=== PATIENT | male | born 1960 | race Caucasian/White ===

== ENCOUNTER 2016-11-14 12:43 | Day surgery (SDC) | payer OTHER ==
[2016-09-11 14:21] VITALS: BMI 28.0
--- NOTE | 2016-09-11 14:44 | PAT Medication Instructions ---
Service Date Sep 11, 2016. Current Home Medication List Albuterol Sulfate (Proventil Hfa), Unknown Dose INH PO Aluminum Chloride (Aluminum Chloride Hexahyd) Aspirin (Aspirin Ec), 81 MG PO QAM Ibuprofen (Motrin), 800 MG PO Q8H Simvastatin (Zocor), 20 MG PO QPM Tamsulosin HCl (Tamsulosin HCl), 1 TAB PO HS Medication Instructions For Your Scheduled Surgery - Hold the following medications 10 days prior to surgery per surgeon's instructions: Aspirin (Aspirin Ec), 81 MG PO QAM Ibuprofen (Motrin), 800 MG PO Q8H - Hold the following medications the morning of surgery: Aluminum Chloride (Aluminum Chloride Hexahyd) - Take the following medications the morning of surgery: Albuterol Sulfate (Proventil Hfa), Unknown Dose INH PO (use if needed; BRING TO HOSPITAL) - Take the following medications as scheduled the night before surgery: Simvastatin (Zocor), 20 MG PO QPM Tamsulosin HCl (Tamsulosin HCl), 1 TAB PO HS *Nothing to eat or drink after midnight* If you have any questions please call us at [phone] (Ilda Quezada PA-C ) or [phone] or [phone]
[2016-09-11 15:35] LABS: BASO % 0.7 %; BASO ABS # 0.03 K/uL (0-0.2); COMPLETE YES; EOS % 0.9 %; HEMATOCRIT 45.1 % (42-52); IG% 0.2 %; LYMPH % 22.4 %; LYMPH ABS # 1.02 K/uL (1.2-3.4); MEAN CELL VOLUME 90.6 fL (80-100); MEAN CORPUSCULAR HEMOGLOBIN 30.9 pg (25-34); MEAN CORPUSCULAR HGB CONC 34.1 g/dl (32-36); MEAN PLATELET VOLUME 10.2 fL (7.4-10.4); MONO % 7.5 %; NEUT % 68.3 %; PLATELET COUNT 187 K/uL (130-400); RED BLOOD COUNT 4.98 M/uL (4.7-6.1); WHITE BLOOD COUNT 4.55 K/uL (4.8-10.8)
[2016-09-11 15:41] LABS: URINE APPEARANCE CLEAR (CLEAR); URINE BILIRUBIN NEG (NEG); URINE COLOR YELLOW; URINE NITRITE NEG (NEG); URINE PH 6.5 (4.5-7.5); UROBILINOGEN NEG (NEG)
[2016-09-11 15:51] LABS: MANUAL MICROSCOPIC REQUIRED? NO; REVIEW REQ? NO
[2016-09-11 15:53] LABS: BUN/CREATININE RATIO 11.5 (10-20); CALCIUM 9.2 mg/dl (8.5-10.1)
--- NOTE | 2016-09-11 15:57 | DIAGNOSTIC IMAGING REPORT ---
CHEST PREADMISSION(PA/LAT) CLINICAL HISTORY: Preoperative chest COMPARISON STUDY: 01/03/2015 FINDINGS: The cardiac and mediastinal contours are normal. There is no evidence of focal pulmonary consolidation. There is no evidence of failure. No pleural effusions are visualized.[ IMPRESSION: No active disease in the chest. Electronically signed by: Shaheen Contreras M.D. 09/11/2016 3:55 PM Dictated Date/Time: 09/11/2016 3:55 PM
[~2016-11-14] VITALS: Ht 185.4 cm; Wt 98.5 kg
[~2016-11-14 12:43] MED LIST: ALBUAER INH; ASPI81TA28 PO; ATROPINE SULFATE 0.1 MG/ML 5ML SYR IV PRN; CEFAZOLIN 2000 MG/60 ML D5W IV SCH; CIPROFLOXACIN / D5W 400 MG IV SCH; EpHEDrine SULFATE INJ 50 MG/ML AMP IV PRN; FENTANYL CITRATE INJ 50 MCG/1 ML 2 ML VIAL IV PRN; FLM4 PO; HYDROmorphone INJ 1 MG/ML SYR IV PRN; IBUP-1428 PO; LACTATED RINGER'S 1000ML 1,000 ML IV SCH; ONDANSETRON INJ 2 MG/ML 2 ML VIAL IV PRN; SIMV20TA2 PO; [UNRECOGNIZED DRUG - CODE]
[2016-11-14 13:05] VITALS: BP 156/70; PULSE 75; TEMP 36.8; O2SAT 99; Ht 185.4 cm; Wt 98.5 kg
[2016-11-14] MEDS ORDERED: OMEG10007 PO (13:16)
--- NOTE | 2016-11-14 13:31 | History & Physical Bridge Note ---
H&P Re-Evaluation Bridge Note: I have examined the patient, reviewed the History & Physical and in the interval since the performance of the History & Physical I have noted the following changes of clinical significance: No changes noted
[2016-11-14] MEDS ORDERED: LIDOCAINE HCL 2% 2 ML VIAL (20MG/ML) ONE (15:42)
[2016-11-14] MEDS ORDERED: FENTANYL CITRATE INJ 50 MCG/1 ML 2 ML VIAL ONE ×2 (15:42→16:26)
[2016-11-14] MEDS ORDERED: DEXAMETHASONE SOD INJ 4 MG/ML VIAL ONE (15:42)
[2016-11-14] MEDS ORDERED: PROPOFOL IV EMULSION 10 MG/ML 20 ML VIAL IV ONE (15:42)
[2016-11-14] MEDS ORDERED: MIDAZOLAM HCL 1 MG/ML 2ML VIAL ONE (15:42)
[2016-11-14] MEDS ORDERED: ONDANSETRON INJ 2 MG/ML 2 ML VIAL ONE (15:42)
[2016-11-14] MEDS ORDERED: MoRPHine SULFATE 2 MG/ML CARP ONE (16:06)
[2016-11-14] MEDS ORDERED: BELLADONNA/OPIUM SUPP 60 MG SUPP PR ONE (16:41)
--- NOTE | 2016-11-14 17:26 | [facility] Post Operative Brief Note ---
Immediate Operative Summary Operative Date Nov 14, 2016. Pre-Operative Diagnosis Renal Insufficiency, Benign Prostatic Hypertrophy, Urinary Retention Post-Operative Diagnosis Renal Insufficiency, Benign Prostatic Hypertrophy, Urinary Retention Procedure(s) Performed Greenlight Transuretheral Resection Prostate Surgeon Dr. Marcello Hernandez Installation And Service Technician Surgeon(s) none Estimated Blood Loss 10 cc Findings Open fossa, 147K J used. Specimens #1 Urine routine culture and sensitivity Drains 20 fr green, 10 cc H2O Anesthesia GALMA Complication(s) None Disposition Recovery Room / PACU
[2016-11-14] MEDS ORDERED: PHEN-775 PO (17:30)
[2016-11-14] MEDS ORDERED: CIPR-255 PO (17:30)
[2016-11-14] MEDS ORDERED: OXYCODONE/ACETAMINOPHEN 5-325 TAB PO PRN (17:30)
[2016-11-14] MEDS ORDERED: PHENAZOPYRIDINE HCL 200 MG TAB PO PRN (17:30)
[2016-11-14] MEDS ORDERED: OXYC7.5T65 PO (17:30)
--- NOTE | 2016-11-14 17:31 | Discharge Instructions ---
Discharge Instructions Date of Service Nov 14, 2016. Admission Reason for Admission: Retention, Benign Prostatic Hypertrophy Discharge Discharge Diagnosis / Problem: BPH, retention s/p GLTURP Discharge Goals Goal(s): Improve function, Improve disease control, Therapeutic intervention Activity Recommendations Activity Limitations: as noted below Lifting Limitations: no more than 25 pounds, gradually increase as tolerated ( after 5-7 days) Exercise/Sports Limitations: gradually increase as tolerated (after 1-2 weeks) May Resume Sexual Activity: after one week Shower/Bathe: no limitations (no bath with green in place) Driving or Machine Use: resume 3 days after discharge . Instructions / Follow-Up Instructions / Follow-Up Catheter to gravity drainage as instructed Discharge Diet Recommended Diet: Regular Diet (good fluid intake) Procedures Procedures Performed: Greenlight Transuretheral Resection Prostate Pending Studies Studies pending at discharge: no Medical Emergencies . Who to Call and When: Medical Emergencies: If at any time you feel your situation is an emergency, please call 911 immediately. . Non-Emergent Contact Non-Emergency issues call your: Urologist Call Non-Emergent contact if: you have a fever, temperature is above 101, your pain is not controlled, your pain is worsening, your pain is unusual for you, your pain is concerning you, you have any medication questions . . "Provider Documentation" section prepared by Marcello Hernandez. VTE Core Measure Inpt VTE Proph given/why not?: SCD's [place] Drug Monitoring Program Search Results: patient reviewed within database, no issues identified
--- NOTE | 2016-11-14 17:32 | Anesthesiology Progress Note ---
Anesthesia Post Op Note Date & Time Nov 14, 2016 at 17:32 Vital Signs Pain Intensity: 2 Vital Signs Past 12 Hours Date Time Temp Pulse Resp B/P Pulse Ox O2 Delivery O2 Flow Rate FiO2 11/14/16 17:25 80 15 139/69 100 Mask 10 11/14/16 17:15 37.1 96 17 141/91 97 Mask 10 11/14/16 13:05 36.8 75 18 156/70 99 Room Air Notes Mental Status: alert / awake / arousable, participated in evaluation Pt Amnestic to Procedure: Yes Nausea / Vomiting: adequately controlled Pain: adequately controlled Airway Patency, RR, SpO2: stable & adequate BP & HR: stable & adequate Hydration State: stable & adequate Anesthetic Complications: no major complications apparent Pt doing well.
[2016-11-14 18:00] VITALS: BP 148/83; PULSE 71; TEMP 36.5; O2SAT 94
--- NOTE | 2016-11-14 18:16 | OPERATIVE REPORT ---
DATE OF OPERATION: 11/14/2016 PREOPERATIVE DIAGNOSES: Benign prostatic hypertrophy, urinary retention and renal insufficiency. POSTOPERATIVE DIAGNOSES: Same. PROCEDURE: GreenLight vaporization of the prostate gland. SURGEON: Dr. Marcello Hernandez. FOLLOW UP SPECIALIST: None. ANESTHESIA: General anesthesia with laryngeal mask. COMPLICATIONS: None. FINDINGS: Excellent opening of the prostatic fossa after completion of case, 147,000 joules of energy used with 21 minutes of laser time. DRAINS LEFT IN PLACE: Include 20-[place]izen [place] Leblanc catheter with 10 mL of sterile water in the balloon. ESTIMATED BLOOD LOSS: 10 mL. IV FLUIDS: 1300 mL of crystalloid. SPECIMENS SENT TO PATHOLOGY: Urine for culture and sensitivity. COMPLICATIONS: None. BRIEF HISTORY: Mr. العراقي is a pleasant 56-year-old male with a history of bothersome urinary symptoms who has been seen by our service and found to have BPH with urinary retention as his problem. Please see H\T\P for further details. He is here today for GreenLight laser resection of his prostate to unobstruct his prostate gland. Intravenous ciprofloxacin and Ancef were provided for antibiotic coverage. SCDs used for DVT prophylaxis. Informed consent reviewed prior to the operating room today. DESCRIPTION OF PROCEDURE: The patient was properly identified and brought to the operative suite after identification of appropriate consent on the chart, general anesthesia with laryngeal mask was initiated. The patient was prepped and draped in a standard fashion for this procedure. time clock inspector-out procedure was followed. A GreenLight laser resectoscope with visual obturator was introduced into the bladder. Mild urethral stenosis proximal was appreciated. An obstructive prostate gland with an elevated bladder neck and lateral lobe hypertrophy was noted. Grade 3 trabeculation with early cellule and diverticular formation throughout the bladder was noted. Bladder was noted to be somewhat inflamed with cloudy urine. Ureteral orifices were identified and noted to be well removed from the bladder neck. The bladder was generously irrigated until the urine was noted to be cleared. Diffuse bladder erythema consistent with irritation was appreciated. No suspicious masses or calculi were noted. Using the side fire GreenLight laser scope circumferential vaporization of the prostate gland was performed between 80 and 140 cooper. This was performed for 21 minutes as noted and 147,000 joules. Relaxing incisions at the 5 and 7 o'clock position of the bladder neck were made and great care was taken to avoid any injury to the ureteral orifices, which were noted to be intact by the end of the case. After completion of laser resection, prostate was noted to be well opened and visually unobstructed with excellent hemostasis throughout the entirety of the case. No resection distal to the verumontanum was carried out to avoid any damage to the sphincter. After this was complete, bladder was partially extended and resectoscope was removed. A 20 [place] Leblanc catheter was placed without difficulties with return of clear irrigant. Ten mL of sterile water were placed within the balloon. Catheter was placed to gravity drainage and belladonna and opium suppository was provided for additional analgesia in the postoperative period. Anesthesia was reversed. The patient was transferred to recovery room in stable condition. FOLLOWUP CARE: The patient will be discharged home with a prescription for Pyridium, ciprofloxacin and Percocet. His postoperative appointment is confirmed. He is instructed to contact our office should he note any fevers, chills, nausea, vomiting or other significant difficulties in the postoperative period. I attest to the content of the Intraoperative Record and any orders documented therein. Any exceptions are noted below. SHEREEN
[2016-11-14 18:40] VITALS: BP 140/77; PULSE 78; TEMP 36.5; O2SAT 94
== END 2016-11-14 18:54 | disposition home or self-care (01) ==
LOC: C.ACU 12:43
PROVIDERS: ATTEND Urology
DX: N40.1 Benign prostatic hyperplasia with lower urinary tract symptoms (principal); R33.8 Other retention of urine; N52.9 Male erectile dysfunction, unspecified; N28.9 Disorder of kidney and ureter, unspecified; M19.90 Unspecified osteoarthritis, unspecified site; J45.909 Unspecified asthma, uncomplicated

== ENCOUNTER → 2016-11-27 | Outpatient (CLI) | payer OTHER ==
[~2016-11-27] MED LIST changes: -ATROPINE SULFATE 0.1 MG/ML 5ML SYR IV PRN; -CEFAZOLIN 2000 MG/60 ML D5W IV SCH; +CIPR-255 PO; -CIPROFLOXACIN / D5W 400 MG IV SCH; -EpHEDrine SULFATE INJ 50 MG/ML AMP IV PRN; -FENTANYL CITRATE INJ 50 MCG/1 ML 2 ML VIAL IV PRN; -HYDROmorphone INJ 1 MG/ML SYR IV PRN; -LACTATED RINGER'S 1000ML 1,000 ML IV SCH; +OMEG10007 PO; -ONDANSETRON INJ 2 MG/ML 2 ML VIAL IV PRN; +OXYC7.5T65 PO
== END | disposition home or self-care (01) ==
LOC: C.LABSPEC 10:38
PROVIDERS: ATTEND Urology
DX: N40.0 Benign prostatic hyperplasia without lower urinary tract symptoms (principal)

== ENCOUNTER → 2017-02-27 | Outpatient (CLI) | payer OTHER ==
--- NOTE | 2017-02-27 14:38 | DIAGNOSTIC IMAGING REPORT ---
RIGHT KNEE 4 VIEWS; LEFT KNEE 4 VIEWS CLINICAL HISTORY: Bilateral knee pain. FINDINGS: An AP standing view of both knees, a tunnel view of both knees, a sunrise view of both knees, and crosstable lateral views of the right and left knee are obtained. Comparison is made to study dated 01/08/2016. The skeletal structures are well mineralized. No fracture is seen. Right knee: There is mild tricompartmental degenerative joint space narrowing in the right knee, greatest at the patellofemoral articulation. There are lateral marginal osteophytes, degenerative beaking of the tibial spine, and patellar enthesophytes. There is no evidence of osteochondral defect on the tunnel view. No significant joint effusion is seen. Mild prepatellar soft tissue edema is noted. Left knee: There is moderate degenerative narrowing in the medial and patellofemoral compartments. Mild narrowing is seen in the lateral compartment. There are large marginal osteophytes as well as large patellar enthesophytes and degenerative beaking of the tibial spine. No osteochondral defect is seen on the tunnel view. There is no significant joint effusion. Prepatellar soft tissue edema is noted. IMPRESSION: 1. Soft tissue swelling with no acute bony abnormality seen in either knee. 2. Arthritic change as above. Findings are similar to the 01/08/2016 examination. Electronically signed by: Norman Ramos M.D. 02/27/2017 2:37 PM Dictated Date/Time: 02/27/2017 2:32 PM
== END | disposition home or self-care (01) ==
LOC: C.RDSM 14:10
PROVIDERS: ATTEND Physician Assistant
DX: M25.561 Pain in right knee (principal); M25.562 Pain in left knee; M79.9 Soft tissue disorder, unspecified; M17.12 Unilateral primary osteoarthritis, left knee

== ENCOUNTER → 2017-11-28 | Outpatient (CLI) | payer OTHER ==
[~2017-11-28] MED LIST changes: -CIPR-255 PO; -FLM4 PO; -OXYC7.5T65 PO
[2017-11-28 17:48] LABS: HEMATOCRIT 45.4 % (42-52); HEMOGLOBIN 15.5 g/dL (14.0-18.0); MEAN CELL VOLUME 90.8 fL (80-100); MEAN CORPUSCULAR HGB CONC 34.1 g/dl (32-36); MEAN PLATELET VOLUME 10.1 fL (7.4-10.4); PLATELET COUNT 176 K/uL (130-400); RED CELL DISTRIBUTION WIDTH CV 13.3 % (11.5-14.5); RED CELL DISTRIBUTION WIDTH SD 44.4 fL (36.4-46.3); WHITE BLOOD COUNT 5.37 K/uL (4.8-10.8)
[2017-11-28 18:06] LABS: BLOOD UREA NITROGEN 26 mg/dl (7-18); CALCIUM 9.2 mg/dl (8.5-10.1); CARBON DIOXIDE 27 mmol/L (21-32); CREATININE 1.24 mg/dl (0.60-1.40); GLUCOSE 83 mg/dl (70-99); POTASSIUM 3.8 mmol/L (3.5-5.1); SODIUM 138 mmol/L (136-145)
== END | disposition home or self-care (01) ==
LOC: C.RAD 16:39
PROVIDERS: ATTEND Physician Assistant
DX: Z01.818 Encounter for other preprocedural examination (principal); M75.100 Unspecified rotator cuff tear or rupture of unspecified shoulder, not specified as traumatic

== ENCOUNTER → 2017-12-23 | Day surgery (SDC) | payer OTHER ==
[2017-11-18 11:50] VITALS: Ht 185.4 cm; Wt 97.7 kg
[~2017-12-23] VITALS: Ht 185.4 cm; Wt 97.7 kg
[~2017-12-23] MED LIST changes: +ATROPINE SULFATE 0.1 MG/ML 5ML SYR IV PRN; +CEFAZOLIN 2000MG IV PUSH 15 ML IV SCH; +DEXAMETHASONE SOD INJ 4 MG/ML VIAL ONE; +EpHEDrine SULFATE INJ 50 MG/ML AMP IV PRN; +EpINEphrine INJ 1MG/ML AMP 1 MG/ML AMP ONE; +FENTANYL CITRATE INJ 50 MCG/1 ML 2 ML VIAL IV PRN; +FENTANYL CITRATE INJ 50 MCG/1 ML 2 ML VIAL ONE; +KETOROLAC TROMETHAMINE 30 MG/ML VIAL IV. PRN; +LACTATED RINGER'S 1000ML 1,000 ML IV SCH; +LEVOFLOXACIN 500 MG TAB ONE; +LEVOFLOXACIN 500 MG TAB PO SCH; +LIDOCAINE HCL 2% 2 ML VIAL (20MG/ML) ONE; +MIDAZOLAM HCL 1 MG/ML 2ML VIAL ONE; +ONDANSETRON INJ 2 MG/ML 2 ML VIAL IV PRN; +ONDANSETRON INJ 2 MG/ML 2 ML VIAL ONE; +OXYCODONE/ACETAMINOPHEN 5-325 TAB PO PRN; +PROPOFOL IV EMULSION 10 MG/ML 20 ML VIAL IV ONE; +ROCURONIUM BROMIDE 10 MG/ML 5 ML VIAL IV ONE; +ROPIVACAINE 0.5% 5 MG/ML 30 ML VIAL ONE; +SODIUM CHLORIDE 0.9% 1000ML 1,000 ML IV SCH
--- NOTE | 2017-12-23 06:55 | History & Physical Bridge Note ---
H&P Re-Evaluation Bridge Note: I have examined the patient, reviewed the History & Physical and in the interval since the performance of the History & Physical I have noted the following changes of clinical significance: consent obtained.No changes noted
--- NOTE | 2017-12-23 06:57 | Discharge Instructions ---
Discharge Instructions Date of Service Dec 23, 2017. Visit Reason for Visit: Right Shoulder Rotator Cuff Tear, Biceps Tendonopa Discharge Discharge Diagnosis / Problem: same Discharge Goals Goal(s): Decrease discomfort, Improve function, Increase independence Medications Stopped Medications Name(s): na Restart Stopped Medication(s): use all scripts as directed Activity Recommendations Activity Limitations: as noted below Lifting Limitations: until after follow-up appointment Exercise/Sports Limitations: until after follow-up appointment May Resume Sexual Activity: after one week Shower/Bathe: keep incision dry Driving or Machine Use: Anesthesia . Post Anesthesia Instructions: If you have had General Anesthesia or IV Sedation: * Do not drive today. * Resume driving when surgeon permits. * Do not make important decisions or sign legal documents today. * Call surgeon for: 1. Temperature elevations greater than 101 degrees F. 2. Uncontrollable pain. 3. Excessive bleeding. 4. Persistent nausea and vomiting. 5. Medication intolerance (nausea, vomiting or rash). * For nausea and vomiting use only clear liquids such as: tea, soda, bouillon until nausea subsides, then gradually increase diet as tolerated. * If you have any concerns or questions, call your surgeon's office. If physician is unavailable and it is an emergency, call 911 or go to the nearest emergency room. . Instructions / Follow-Up Instructions / Follow-Up The following are instructions to follow after "Shoulder Surgery" including, Acromioplasty, Rotator Cuff Repair and Instability Surgery ACTIVITY RECOMMENDATIONS: * Minimize activity after surgery. * No excessive walking, jogging, sports or laboring. * Return to activity is individualized depending on the patient and type of surgery. * Driving is not permitted until at least your first post operative visit. Please ask your doctor when it is safe to resume driving. * Expect increased discomfort with increased activity. Continue to ice the shoulder as needed. SCHOOL/WORK RECOMMENDATIONS: * You may return to sedentary work or school when you are feeling more comfortable. This is usually 3-7 days after surgery. MEDICATIONS: * You will have a prescription for pain medication and an anti-inflammatory medication after surgery. * Use the pain medication for severe pain and the anti-inflammatory for less severe pain. Once the pain medication has run out, try to use the anti-inflammatory medication. If this is not effective, contact the office for assistance. * The pain medication may cause nausea, constipation and drowsiness. You should see how they affect you before driving or similar activity. * The anti-inflammatory medication may cause stomach upset and bleeding. If this occurs let your doctor know immediately . * Take a stool softener like Colace or a laxative like Senokot to prevent constipation. DIET: * Resume previous diet. SPECIAL CARE: ICE: You have the option of an ice cooler, gel packs or ice bags. * If you have an ice cooler, refer to the instructions for that device. The ice cooler may be used continuously. * If you do not have an ice cooler, you will need to use ice bags or gel packs. Do not apply ice directly to the skin. Use a thin dressing or flako shirt between the skin and ice bag. Apply ice for 20-30 minutes and repeat every 2-4 hours. This is especially important for the first 7-10 days after surgery. Once the pain improves, use ice as needed. ELEVATION: * You may be more comfortable sleeping in an upright position. Use the sling to elevate your arm. DRESSING: * Your dressing will be changed at your first therapy appointment approximately 4-5 days after surgery. Band-aids, tape strips or gauze may be applied. You may then change your dressing daily. * Reapply dressing followed by the EBIce cooling pad (if chosen) and then the sling. * Always wash your hands prior to touching the incision area. * Once the stitches are removed, you may leave the wound open to air or cover with gauze. * Expect some bloody drainage for the first few days after surgery. * Leave the tape strips, if present, in place for 5-7 days. * Band-aids and gauze may be changed daily. * There may be a gauze pad in your armpit area. This can be changed daily or replaced by a dry washcloth. SLING/BRACE: * You will need to use a sling or brace after surgery. The length of time the sling is used is dependent upon the type of surgery performed. * Arthroscopic Acromioplasty requires use of the sling for 2-4 weeks for comfort. * Labral procedures and Rotator Cuff Repairs require use of the sling for a longer period of time. Please check with your doctor prior to discontinuing the sling. BATHING: * You may shower or sponge-bathe immediately after surgery. The post operative shoulder dressing is mostly water-tight. You may shower right over this dressing, but be reasonably careful not to get the gauze or incision wet. * Once the dressing has been changed on the fourth or fifth day after surgery, you may shower and get the incision wet. * Wash with regular soap and water. * Do not bathe (submerge the incision), soak, swim or use a hot tub until the incision is completely healed over with normal skin and the doctor has given the OK to proceed. * There is no need to apply any ointments, powders or salves to your incision. * Do not apply alcohol or hydrogen peroxide directly to the incision. * Diluted peroxide (50:50 mixture with sterile saline) may be used to clean dried blood from around the incision area. THERAPY: * You will begin therapy four or five days after surgery. * Organized therapy with the therapist is important for the first 2-4 months after surgery depending on the type of procedure. During that time you will attend therapy 1-3 times per week. * You will also need to do daily exercises for range of motion and strength as instructed. * Patients who have a Capsular Shift Procedure will need to abide by temporary range of motion limitations. * Patients having Rotator Cuff Surgery are not allowed to actively lift their arms until 4-6 weeks after surgery. * Please check with your doctor regarding appropriate motion restrictions. FOLLOW UP VISIT: * If not already scheduled, please call the office at to schedule a follow-up appointment for 10 days after surgery and monthly thereafter. Diet Recommendations Recommended Home Diet: resume previous diet Procedures Procedures Performed: see op note Pending Studies Studies pending at discharge: no Medical Emergencies . Who to Call and When: Medical Emergencies: If at any time you feel your situation is an emergency, please call 911 immediately. . Non-Emergent Contact Non-Emergency issues call your: Specialist Call Non-Emergent contact if: wound has increased drainage, wound has increased redness, wound has increased pain . . "Provider Documentation" section prepared by Dominguez Nicholson. .
--- NOTE | 2017-12-23 08:52 | [facility] Post Operative Brief Note ---
Immediate Operative Summary Operative Date Dec 23, 2017. Pre-Operative Diagnosis Right Shoulder Rotator Cuff Tear, Biceps Tendonopathy Post-Operative Diagnosis Same Procedure(s) Performed Right Shoulder Arthroscopic Rotator Cuff Repair, Subacromial Decompression, Biceps Tenotomy, Excision of Distal Clavicle Surgeon Dr. Nicholson Regulatory Services Consultant Surgeon(s) Tyson Morton PA-C Estimated Blood Loss Trace Findings Consistent with Post-Op Diagnosis Fluids (cc crystalloids) 800cc Specimens None Drains None Anesthesia Type General Regional Complication(s) none Disposition Accompanied Pt To Recovery: no Disposition: Recovery Room / PACU
--- NOTE | 2017-12-23 09:07 | [facility] Operative Report ---
Operative Report Operative Date Dec 23, 2017. Pre-Operative Diagnosis Right Shoulder Rotator Cuff Tear, Biceps Tendonopathy Post-Operative Diagnosis Right shoulder same Procedure(s) Performed Right Shoulder Arthroscopic Rotator Cuff Repair, Subacromial Decompression, Biceps Tenotomy, Excision of Distal Clavicle Surgeon Dr. Nicholson Retirement Village Manager Surgeon(s) Tyson Morton PA-C Estimated Blood Loss Trace Findings Right shoulder biceps tendinopathy, rotator cuff tear, subacromial impinge Fluids 800cc Specimens None Drains None Anesthesia Type General Regional Complication(s) none Disposition no Recovery Room / PACU Indications This 57-year-old white male presented to the office with complaints of right shoulder pain in loss of strength. He had tried conservative care measures without success. Preoperative imaging was obtained. He elected to proceed with surgical intervention after being educated about potential risks and outcomes. Description of Procedure Patient was administered a regional block and then taken to the operating room where he was given general anesthesia. He was prepped and draped in usual sterile fashion. Please see Dr. Nicholson's operative report for specifics of the procedure. I was present for the entire case from initial patient positioning through final wound closure. Assistance was provided in patient positioning, arthroscopy, anchor placement, and final wound closure. The patient was taken to the recovery room in satisfactory condition. I attest to the content of the Intraoperative Record and any orders documented therein. Any exceptions are noted below.
[2017-12-23 09:48] VITALS: TEMP 36.4
--- NOTE | 2017-12-23 10:20 | OPERATIVE REPORT ---
DATE OF OPERATION: 12/23/2017 DATE OF PROCEDURE: 12/23/2017. SURGEON: Dominguez Nicholson M.D. ARTIST AND REPERTOIRE MANAGER: No resident or fellow available. PREOPERATIVE DIAGNOSES: Chronic shoulder pain with impingement syndrome, rotator cuff tear, biceps tendonopathy. POSTOPERATIVE DIAGNOSES: Same. OPERATION PERFORMED: 1. Exam under anesthesia. 2. Diagnostic arthroscopy. 3. Arthroscopic subacromial decompression. 4. Arthroscopic excision distal clavicle. 5. Arthroscopic biceps tenotomy. 6. Arthroscopic repair 2.5-3 cm rotator cuff tear. PERIOPERATIVE SITUATION: Medically cleared male with intractable shoulder pain with physical exam, x-ray and MRI scan consistent with the above diagnosis. Consent obtained. All options discussed. He was concerned about his biceps tendon; however, I told him that I would only do the tenotomy if necessary. DESCRIPTION OF PROCEDURE: The patient was identified, site verified, and consent verified, 2 grams of Ancef confirmed as being given. The right upper extremity was examined revealing no instability. He was then carefully prepped and draped in usual routine fashion in a beach chair position. At the posterior portal then made 2 cm medial and inferior to the posterior lateral corner of the acromion and anterior portal made just off the edge of the AC joint. The joint was entered. Immediately encountered was significant synovitis. The biceps was 95% torn. It was completely tenosynovitic down the sheath. Therefore, the last 5% was released. The rotator cuff tear was debrided. There was a large tear. The glenohumeral joint was healthy. The labrum was relatively healthy. He had a rope-like middle glenohumeral ligament. The subacromial space was then entered, the tear identified and slightly debrided. The footprint debrided with a curette and a shaver. The CA ligament was frayed. It was released. The subacromial decompression performed in the distal 3-4 mm of the clavicle and the medial 2-3 mm of the acromion were then shaved with the shaver through the anterior portal. Good decompression was obtained there. Two holes were then placed in the footprint of the rotator cuff attachment of the supraspinatus. The bone was very healthy, so a larger awl was utilized. Four sutures were then placed from anterior to posterior. They were then crossed and a cross repair made with the 4.75 anchors with excellent purchase, excellent repair. The rotator cuff was stable. This was viewed from both in the side and the front and the back. The procedure was then terminated. All instruments and fluid removed. The portals closed with 3-0 nylon, dressed with Xeroform, 4 x 4's gauze, sterile ABD pads and Ioban dressing. ESTIMATED BLOOD LOSS: Trace. CRYSTALLOID: 800 mL. DVT PROPHYLAXIS: None. PATHOLOGY PENDING: None. I attest to the content of the Intraoperative Record and any orders documented therein. Any exception s are noted below.
[2017-12-23 10:25] VITALS: BP 147/80; O2SAT 95
--- NOTE | 2017-12-23 10:29 | Anesthesia Progress Nt - [facility] ---
Anesthesia Post Op Note Date & Time Dec 23, 2017 at 10:29 Vital Signs Pain Intensity: 0 Vital Signs Past 12 Hours Date Time Temp Pulse Resp B/P (MAP) Pulse Ox O2 Delivery O2 Flow Rate FiO2 12/23/17 10:25 73 16 147/80 (102) 95 Room Air 12/23/17 09:48 36.4 71 16 143/81 (101) 99 Room Air 12/23/17 09:41 36.4 146/93 (103) 12/23/17 09:40 67 17 94 12/23/17 09:40 70 17 12/23/17 09:36 159/94 (111) 12/23/17 09:35 83 22 95 12/23/17 09:35 82 22 12/23/17 09:31 149/102 (115) 12/23/17 09:30 78 19 12/23/17 09:30 79 19 94 12/23/17 09:28 Room Air 12/23/17 09:26 152/95 (119) 12/23/17 09:25 66 16 12/23/17 09:25 67 16 98 12/23/17 09:21 148/82 (102) 12/23/17 09:20 65 17 12/23/17 09:20 65 17 98 12/23/17 09:15 78 19 165/95 (118) 98 12/23/17 09:15 77 19 12/23/17 09:00 36.5 78 16 135/96 98 Diffusion Mask 5 12/23/17 07:53 0 12/23/17 07:51 167/98 12/23/17 07:48 78 12/23/17 07:48 77 25 99 12/23/17 07:46 162/100 12/23/17 07:43 72 12/23/17 07:43 71 29 99 12/23/17 07:41 151/90 12/23/17 07:38 68 15 99 12/23/17 07:38 69 12/23/17 07:36 155/98 12/23/17 07:34 164/101 12/23/17 07:33 76 21 100 12/23/17 07:33 79 12/23/17 07:31 226/133 12/23/17 07:28 72 97 12/23/17 07:28 70 4/24/18 07:26 146/90 12/23/17 06:34 36.9 79 16 139/93 (108) 97 Room Air Notes Mental Status: alert / awake / arousable, participated in evaluation Pt Amnestic to Procedure: Yes Nausea / Vomiting: adequately controlled Pain: adequately controlled Airway Patency, RR, SpO2: stable & adequate BP & HR: stable & adequate Hydration State: stable & adequate Anesthetic Complications: no major complications apparent
== END | disposition home or self-care (01) ==
LOC: X.SURG 06:15
PROVIDERS: ATTEND Physical Medicine & Rehabilitation Sports Medicine
DX: M75.41 Impingement syndrome of right shoulder (principal); M75.101 Unspecified rotator cuff tear or rupture of right shoulder, not specified as traumatic; M75.21 Bicipital tendinitis, right shoulder; J45.909 Unspecified asthma, uncomplicated; E78.5 Hyperlipidemia, unspecified; M19.90 Unspecified osteoarthritis, unspecified site; N18.9 Chronic kidney disease, unspecified; N40.0 Benign prostatic hyperplasia without lower urinary tract symptoms